=== PATIENT | female | born 1940 | race Asian ===

== ENCOUNTER 2018-01-29 15:25 | Outpatient (CLI) | payer OTHER ==
--- NOTE | 2018-01-29 17:01 | MMO ---
BILATERAL SCREENING MAMMOGRAM: Date: 01/29/18 HISTORY: 78-year-old female. Routine screening mammography. COMPARISON: 06/11/12 and 04/14/11. TECHNIQUE: CC and MLO views of both breasts are submitted for interpretation. This patient's mammogram was reviewed with the assistance of computer-aided detection. FINDINGS: The breasts are composed of scattered fibroglandular tissue. Bilaterally, no suspicious dominant mass , architectural distortion, or suspicious calcifications. There are bilateral benign-appearing calcif ications. IMPRESSION: BIRADS 2: Benign Finding(s) RECOMMENDATION: Annual mammogram. POS: [facility]
== END 2018-01-29 15:26 | disposition home or self-care (01) ==
LOC: SCSMAMMO 15:25
PROVIDERS: ATTEND Family Medicine
DX: Z12.31 Encounter for screening mammogram for malignant neoplasm of breast (principal)
CPT/HCPCS: 77067